=== PATIENT | male | born 1955 | race Caucasian/White ===

== ENCOUNTER 2024-08-22 17:27 | Inpatient (IN) | payer MEDICARE, OTHER ==
[~2024-08-22] VITALS: Ht 177.8 cm; Wt 90.6 kg
[2024-08-22] VITALS (11 sets, daily range): BP systolic 90–124; BP diastolic 57–74; TEMP 97.1; O2SAT 93–99
[2024-08-22] MEDS ORDERED: LISI10TA24 PO (22:02)
[2024-08-22] MEDS ORDERED: AMLO1TAB25 PO (22:02)
[2024-08-22] MEDS ORDERED: CARV12.5 PO (22:02)
[2024-08-22 22:08] LABS: ABG HCO3 26.9 MMOL/L (22.0-26.0); ABG O2 SATURATION 94.8 % (95.0-99.0); ABG PARTIAL PRESSURE O2 83.3 mmHg (75.0-100.0); ABG STANDARD HCO3 22.8 MMOL/L. (22.0-26.0); ABG TOTAL CO2 28.8 MMOL/L (23.0-31.0)
[2024-08-22 22:09] LABS: ABG PARTIAL PRESSURE CO2 62.7 mmHg (35.0-45.0)
[2024-08-22] MEDS: UNRESOLVED CLARIFICATION ENTRY XX STA (22:17)
[2024-08-22 22:18] LABS: HEMATOCRIT 50.6 % (42.0-52.0); HEMOGLOBIN 15.7 g/dl (13.5-17.5); MEAN CORPUSCULAR HEMOGLOBIN 31.7 pg (27.0-33.0); MEAN CORPUSCULAR VOLUME 102.2 fl (80.0-96.0); PLATELET COUNT, AUTOMATED 171 10^3/uL (150-450); RED BLOOD COUNT 4.95 10^6/uL (4.30-6.10); WHITE BLOOD COUNT 9.4 10^3/uL (4.0-10.0)
[2024-08-22] MEDS: NOREPINEPHRINE 4MG IN D5 250ML 4 MG in IV 1 EA IV SCH (22:36)
[2024-08-22] MEDS: NS (Normal Saline) 0.9% 1,000 ML IV ONE (22:36)
[2024-08-22] MEDS: propofoL 1,000 MG in IV 1 EA IV SCH (22:37)
[2024-08-22] MEDS: VASOPRESSIN IN 0.9 % NACL 20 UNIT in IV 1 EA IV SCH (22:42)
[2024-08-22 22:48] LABS: ALBUMIN 2.8 G/DL (3.2-5.2); ALKALINE PHOSPHATASE 82 U/L (40-129); ALT/SGPT 40 U/L (7.0-40); AST/SGOT 26 U/L (<34); BILIRUBIN,TOTAL 0.7 MG/DL (0.3-1.2); BLOOD UREA NITROGEN 35 MG/DL (9-23); CALCIUM LEVEL 6.8 MG/DL (8.3-10.6); CARBON DIOXIDE LEVEL 32 MMOL/L (20-31); CHLORIDE LEVEL 93 MMOL/L (98-107); CREATININE FOR GFR 1.11 MG/DL (0.70-1.30); GLOMERULAR FILTRATION RATE > 60.0 (>49); GLUCOSE, FASTING 286 MG/DL (74-106); MAGNESIUM LEVEL 1.8 MG/DL (1.8-2.4); PHOSPHORUS LEVEL 3.9 MG/DL (2.4-5.1); POTASSIUM SERUM 4.6 MMOL/L (3.5-5.1); SODIUM LEVEL 132 MMOL/L (136-145)
[2024-08-22 22:58] LABS: PROCALCITONIN 0.43 ng/ml
[2024-08-22] MEDS ORDERED: VENTAER INH (23:02)
[2024-08-22] MEDS ORDERED: SIMV20TA22 PO (23:02)
[2024-08-22 23:05] LABS: INR 1.1; PARTIAL THROMBOPLASTIN TIME 25.3 SECONDS (24.8-34.2); PROTHROMBIN TIME 14.5 SECONDS (12.5-14.5)
[2024-08-22] MEDS ORDERED: HOME MED LIST COMPLETE! XX SCH (23:05)
[2024-08-22] MEDS: IPRATROPIUM 0.5MG/ALBUTEROL 2.5MG INH SOL UD 3ML (DUONEB) NEB SCH (23:14)
[2024-08-22] MEDS: cefTRIAXone SOD 1 GM in DEXTROSE 5% (D5W) ADV/MINI-BAG 50 ML IV SCH (23:22)
[2024-08-22] MEDS: methylPREDNISolone 40MG 1ML VIAL IV SCH (23:22)
[2024-08-23] VITALS (59 sets, daily range): BP systolic 81–122; BP diastolic 51–77; TEMP 95.6–99.4; O2SAT 91–99
[2024-08-23] MEDS: DOXYCYCLINE HYCLATE 100 MG in DEXTROSE 5% (D5W) MINI-BAG PLU 100 ML IV SCH (00:19)
[2024-08-23 04:39] LABS: EOS # 0.1 10^3/uL (0.0-0.5); EOS % 0.6 % (0.0-3.0); HEMATOCRIT 47.5 % (42.0-52.0); HEMOGLOBIN 15.2 g/dl (13.5-17.5); LYMPH # 0.4 10^3/uL (1.5-5.0); LYMPH % 4.5 % (24.0-44.0); MEAN CORPUSCULAR HEMOGLOBIN 31.1 pg (27.0-33.0); MEAN CORPUSCULAR VOLUME 97.1 fl (80.0-96.0); MONO # 0.4 10^3/uL (0.0-0.8); MONO % 5.4 % (2.0-8.0); NEUTROPHILS # 7.3 10^3/uL (1.5-8.5); PLATELET COUNT, AUTOMATED 138 10^3/uL (150-450); RED BLOOD COUNT 4.89 10^6/uL (4.30-6.10); WHITE BLOOD COUNT 8.2 10^3/uL (4.0-10.0)
[2024-08-23 05:06] LABS: BLOOD UREA NITROGEN 33 MG/DL (9-23); CALCIUM LEVEL 6.8 MG/DL (8.3-10.6); CARBON DIOXIDE LEVEL 31 MMOL/L (20-31); CHLORIDE LEVEL 95 MMOL/L (98-107); CREATININE FOR GFR 0.93 MG/DL (0.70-1.30); GLOMERULAR FILTRATION RATE > 60.0 (>49); GLUCOSE, FASTING 210 MG/DL (74-106); POTASSIUM SERUM 3.8 MMOL/L (3.5-5.1); SODIUM LEVEL 133 MMOL/L (136-145)
[2024-08-23 05:49] LABS: ABG BASE EXCESS 4.5 (-2.0-2.0); ABG HCO3 28.6 MMOL/L (22.0-26.0); ABG O2 SATURATION 99.4 % (95.0-99.0); ABG PARTIAL PRESSURE CO2 40.8 mmHg (35.0-45.0); ABG PARTIAL PRESSURE O2 216.4 mmHg (75.0-100.0); ABG STANDARD HCO3 28.5 MMOL/L. (22.0-26.0); ABG TOTAL CO2 29.9 MMOL/L (23.0-31.0); ABG pH (ARTERIAL) 7.464 UNITS (7.350-7.450)
[2024-08-23] MEDS: ENOXAPARIN 40MG/0.4ML SYRINGE (J1650 PER 10MG) SC SCH (09:32)
[2024-08-23] MEDS: SODIUM CHLORIDE 0.9% 1000 ML IV ONE (09:32)
[2024-08-23] MEDS: PANTOPRAZOLE 40MG VIAL IV SCH (09:32)
[2024-08-23] MEDS: IPRATROPIUM 0.5MG/ALBUTEROL 2.5MG INH SOL UD 3ML (DUONEB) NEB SCH (10:28)
[2024-08-23 11:13] LABS: ABG BASE EXCESS 3.1 (-2.0-2.0); ABG HCO3 30.3 MMOL/L (22.0-26.0); ABG O2 SATURATION 92.7 % (95.0-99.0); ABG PARTIAL PRESSURE O2 68.6 mmHg (75.0-100.0); ABG STANDARD HCO3 27.1 MMOL/L. (22.0-26.0); ABG pH (ARTERIAL) 7.351 UNITS (7.350-7.450)
[2024-08-23] MEDS: IPRATROPIUM 0.5MG/ALBUTEROL 2.5MG INH SOL UD 3ML (DUONEB) NEB ONE (11:21)
[2024-08-23] MEDS: NS 500 ML IV ONE ×2 (13:40→13:52)
[2024-08-23] MEDS: methylPREDNISolone 40MG 1ML VIAL IV ONE (13:52)
[2024-08-23] MEDS: INSULIN LISPRO (NovoLOG) PER UNIT SC SCH (18:00)
[2024-08-23] MEDS ORDERED: GLUCAGON INJ 1MG VIAL SC PRN (19:05)
[2024-08-23] MEDS ORDERED: DEXTROSE 50% 50ML SYRINGE IV PRN (19:05)
[2024-08-23] MEDS ORDERED: GLUCOSE 4 GM CHEW PO PRN (19:05)
[2024-08-24] VITALS (19 sets, daily range): BP systolic 90–127; BP diastolic 53–77; TEMP 98.8–100.6; O2SAT 91–99
[2024-08-24 04:38] LABS: BASO % 0.1 % (0.0-1.0); EOS % 0.3 % (0.0-3.0); HEMATOCRIT 45.2 % (42.0-52.0); HEMOGLOBIN 14.7 g/dl (13.5-17.5); LYMPH # 0.2 10^3/uL (1.5-5.0); LYMPH % 1.9 % (24.0-44.0); MEAN CORPUSCULAR HEMOGLOBIN 31.4 pg (27.0-33.0); MEAN CORPUSCULAR HGB CONC 32.5 g/dl (32.0-36.5); MEAN CORPUSCULAR VOLUME 96.6 fl (80.0-96.0); MONO # 0.5 10^3/uL (0.0-0.8); NEUTROPHILS # 10.9 10^3/uL (1.5-8.5); NEUTROPHILS % 93.4 % (36.0-66.0); PLATELET COUNT, AUTOMATED 137 10^3/uL (150-450); RED BLOOD COUNT 4.68 10^6/uL (4.30-6.10); WHITE BLOOD COUNT 11.7 10^3/uL (4.0-10.0)
[2024-08-24 05:02] LABS: ALBUMIN 2.5 G/DL (3.2-5.2); ALKALINE PHOSPHATASE 64 U/L (40-129); ALT/SGPT 33 U/L (7.0-40); AST/SGOT 17 U/L (<34); BILIRUBIN,TOTAL 0.3 MG/DL (0.3-1.2); BLOOD UREA NITROGEN 26 MG/DL (9-23); CALCIUM LEVEL 7.3 MG/DL (8.3-10.6); CARBON DIOXIDE LEVEL 32 MMOL/L (20-31); CHLORIDE LEVEL 97 MMOL/L (98-107); CREATININE FOR GFR 0.84 MG/DL (0.70-1.30); GLOMERULAR FILTRATION RATE > 60.0 (>49); GLUCOSE, FASTING 125 MG/DL (74-106); POTASSIUM SERUM 3.9 MMOL/L (3.5-5.1); SODIUM LEVEL 136 MMOL/L (136-145); TOTAL PROTEIN 5.4 G/DL (5.7-8.2)
[2024-08-24] MEDS: NS (Normal Saline) 0.9% 2,000 ML IV ONE (05:49)
[2024-08-24 06:20] LABS: ABG BASE EXCESS 0.5 (-2.0-2.0); ABG HCO3 25.4 MMOL/L (22.0-26.0); ABG O2 SATURATION 93.5 % (95.0-99.0); ABG PARTIAL PRESSURE CO2 42.1 mmHg (35.0-45.0); ABG PARTIAL PRESSURE O2 71.7 mmHg (75.0-100.0); ABG STANDARD HCO3 24.8 MMOL/L. (22.0-26.0); ABG TOTAL CO2 26.7 MMOL/L (23.0-31.0); ABG pH (ARTERIAL) 7.399 UNITS (7.350-7.450)
[2024-08-24] MEDS: TIOTROPIUM INHALER/CAPSULE (SPIRIVA) INH SCH (08:00)
[2024-08-24] MEDS ORDERED: IPRATROPIUM 0.5MG/ALBUTEROL 2.5MG INH SOL UD 3ML (DUONEB) NEB PRN (09:15)
[2024-08-24] MEDS: LR 1,000 ML IV SCH (10:12)
[2024-08-24] MEDS: CARVedilol 12.5 MG TAB PO ONE (10:52)
[2024-08-24 12:14] LABS: ABG HCO3 28.5 MMOL/L (22.0-26.0); ABG O2 SATURATION 96.3 % (95.0-99.0); ABG PARTIAL PRESSURE CO2 51.3 mmHg (35.0-45.0); ABG PARTIAL PRESSURE O2 90.4 mmHg (75.0-100.0); ABG STANDARD HCO3 26.2 MMOL/L. (22.0-26.0); ABG pH (ARTERIAL) 7.362 UNITS (7.350-7.450)
[2024-08-24] MEDS ORDERED: MIDODRINE 5 MG TAB PO SCH (16:00)
[2024-08-24] MEDS: FORMOTEROL FUMARATE 20 MCG/2 ML INHALATION SOLUTION (PERFOROMIST) INH SCH (19:30)
[2024-08-24] MEDS: guaiFENesin ER TABLET 600 MG TAB PO SCH (20:36)
[2024-08-25] VITALS (8 sets, daily range): BP systolic 127–154; BP diastolic 71–85; TEMP 97.5–98.7; O2SAT 78–92
[2024-08-25 06:06] LABS: BASO % 0.1 % (0.0-1.0); EOS # 0.1 10^3/uL (0.0-0.5); EOS % 0.5 % (0.0-3.0); HEMATOCRIT 45.5 % (42.0-52.0); HEMOGLOBIN 14.7 g/dl (13.5-17.5); LYMPH # 0.3 10^3/uL (1.5-5.0); LYMPH % 2.6 % (24.0-44.0); MEAN CORPUSCULAR HEMOGLOBIN 31.7 pg (27.0-33.0); MEAN CORPUSCULAR HGB CONC 32.3 g/dl (32.0-36.5); MEAN CORPUSCULAR VOLUME 98.1 fl (80.0-96.0); MONO # 0.3 10^3/uL (0.0-0.8); MONO % 3.2 % (2.0-8.0); NEUTROPHILS # 9.8 10^3/uL (1.5-8.5); NEUTROPHILS % 93.2 % (36.0-66.0); PLATELET COUNT, AUTOMATED 142 10^3/uL (150-450); RED BLOOD COUNT 4.64 10^6/uL (4.30-6.10); WHITE BLOOD COUNT 10.5 10^3/uL (4.0-10.0)
[2024-08-25 06:30] LABS: BLOOD UREA NITROGEN 20 MG/DL (9-23); CALCIUM LEVEL 7.7 MG/DL (8.3-10.6); CARBON DIOXIDE LEVEL 37 MMOL/L (20-31); CHLORIDE LEVEL 106 MMOL/L (98-107); CREATININE FOR GFR 0.63 MG/DL (0.70-1.30); GLOMERULAR FILTRATION RATE > 60.0 (>49); GLUCOSE, FASTING 107 MG/DL (74-106); POTASSIUM SERUM 4.9 MMOL/L (3.5-5.1); SODIUM LEVEL 143 MMOL/L (136-145)
[2024-08-25] MEDS: methylPREDNISolone 40MG 1ML VIAL IV SCH (08:53)
[2024-08-25] MEDS: CEFDINIR 300 MG CAP (OMNICEF) PO SCH (08:53)
[2024-08-25] MEDS: DOXYCYCLINE HYCLATE 100MG TABLET PO SCH (08:53)
[2024-08-26 03:09] VITALS: BP 144/85; TEMP 97.5; O2SAT 89
[2024-08-26 13:01] VITALS: BP 145/89; TEMP 97.7; O2SAT 92
[2024-08-26] MEDS: methylPREDNISolone 40MG 1ML VIAL IV SCH (16:18)
[2024-08-26 20:24] VITALS: BP 133/78; TEMP 97.9; O2SAT 93
[2024-08-27] VITALS (7 sets, daily range): BP systolic 140–153; BP diastolic 88–97; TEMP 97.5–98.1; O2SAT 88–93
[2024-08-27] MEDS: predniSONE 20 MG TAB PO SCH (09:59)
[2024-08-27] MEDS: metOLazone 5 MG TAB PO ONE (12:46)
[2024-08-27] MEDS: FUROSEMIDE 40MG/4ML VIAL IV ONE ×2 (13:33→18:32)
[2024-08-27] MEDS ORDERED: CEFD300CAP PO (15:28)
[2024-08-27] MEDS ORDERED: ALBU8.5H INH (15:28)
[2024-08-27] MEDS ORDERED: DOXY100T PO (15:28)
[2024-08-27] MEDS ORDERED: BUDE90AE INH (15:28)
[2024-08-27] MEDS ORDERED: PRED20TA PO (15:28)
[2024-08-27] MEDS ORDERED: PRED10TA2 PO (15:28)
[2024-08-27] MEDS ORDERED: TIOT18INH INH (15:28)
[2024-08-27] MEDS ORDERED: COMBAER6 INH (15:28)
[2024-08-27] MEDS ORDERED: [UNRECOGNIZED DRUG - CODE] NEB (15:33)
[2024-08-27] MEDS ORDERED: TALK1KIT MC (15:33)
[2024-08-27] MEDS ORDERED: IPRA0.00 INH (15:33)
[2024-08-27] MEDS: hydroCHLOROthiazide 12.5 MG CAPSULE PO SCH (15:46)
[2024-08-28 04:00] VITALS: BP 119/85; TEMP 97.1; O2SAT 90
[2024-08-28 12:00] VITALS: BP 146/90; TEMP 97.7; O2SAT 87
[2024-08-28] MEDS ORDERED: AZIT-12 PO (14:25)
[2024-08-28 19:51] VITALS: BP 142/98; TEMP 97.5; O2SAT 97
[2024-08-28] MEDS: metOLazone 5 MG TAB PO ONE (20:32)
[2024-08-28 21:30] VITALS: BP 133/86
[2024-08-28] MEDS: FUROSEMIDE 40MG/4ML VIAL IV ONE (21:33)
[2024-08-29 04:27] VITALS: BP 133/80; TEMP 97.7; O2SAT 91
[2024-08-29] MEDS ORDERED: BREO1INH PO (09:06)
[2024-08-29] MEDS: ADVAIR HFA 230/21MCG INHALER INH SCH (09:26)
[2024-08-29 09:43] LABS: BASO % 0.1 % (0.0-1.0); EOS % 0.2 % (0.0-3.0); LYMPH # 0.7 10^3/uL (1.5-5.0); LYMPH % 7.4 % (24.0-44.0); MEAN CORPUSCULAR HEMOGLOBIN 30.8 pg (27.0-33.0); MEAN CORPUSCULAR HGB CONC 32.7 g/dl (32.0-36.5); MEAN CORPUSCULAR VOLUME 93.9 fl (80.0-96.0); MONO % 10.2 % (2.0-8.0); NEUTROPHILS # 8.2 10^3/uL (1.5-8.5); NEUTROPHILS % 81.8 % (36.0-66.0); PLATELET COUNT, AUTOMATED 153 10^3/uL (150-450); RED BLOOD COUNT 5.95 10^6/uL (4.30-6.10); WHITE BLOOD COUNT 10.1 10^3/uL (4.0-10.0)
[2024-08-29 09:48] LABS: HEMATOCRIT 55.9 % (42.0-52.0); HEMOGLOBIN 18.3 g/dl (13.5-17.5)
[2024-08-29] MEDS: predniSONE 20 MG TAB PO SCH (09:57)
[2024-08-29 09:58] VITALS: BP 142/85
[2024-08-29 10:18] LABS: BLOOD UREA NITROGEN 21 MG/DL (9-23); CALCIUM LEVEL 8.6 MG/DL (8.3-10.6); CARBON DIOXIDE LEVEL > 40.0 MMOL/L (20-31); CHLORIDE LEVEL 90 MMOL/L (98-107); CREATININE FOR GFR 0.65 MG/DL (0.70-1.30); GLOMERULAR FILTRATION RATE > 60.0 (>49); GLUCOSE, FASTING 120 MG/DL (74-106); POTASSIUM SERUM 3.3 MMOL/L (3.5-5.1); SODIUM LEVEL 140 MMOL/L (136-145)
[2024-08-29 12:00] VITALS: BP 143/87; TEMP 98.1; O2SAT 89
[2024-08-29] MEDS ORDERED: ALBU8.5H INH (12:13)
[2024-08-29] MEDS ORDERED: IPRA0.00 INH (12:13)
[2024-08-29] MEDS ORDERED: BUDE0.5S6 INH (12:13)
== END 2024-08-29 14:00 | disposition home or self-care (01) | DRG 208 ==
LOC: M ICU 20:45 → M MS5PR 08-25 12:57
PROVIDERS: ADMIT Internal Medicine Critical Care Medicine; ATTEND Internal Medicine Nephrology
PROC: 5A1945Z Respiratory Ventilation, 24-96 Consecutive Hours (ICD-10-PCS; principal; 2024-08-22)
PROC: 02HV33Z Insertion of Infusion Device into Superior Vena Cava, Percutaneous Approach (ICD-10-PCS; 2024-08-22)
PROC: B246ZZZ Ultrasonography of Right and Left Heart (ICD-10-PCS; 2024-08-23)
DX: J96.01 Acute respiratory failure with hypoxia (principal); G93.41 Metabolic encephalopathy; J18.9 Pneumonia, unspecified organism; J44.1 Chronic obstructive pulmonary disease with (acute) exacerbation; J44.0 Chronic obstructive pulmonary disease with (acute) lower respiratory infection; E87.29 Other acidosis; I10 Essential (primary) hypertension; E78.5 Hyperlipidemia, unspecified; F17.210 Nicotine dependence, cigarettes, uncomplicated; J96.02 Acute respiratory failure with hypercapnia; I95.9 Hypotension, unspecified; Z79.899 Other long term (current) drug therapy; Z91.030 Bee allergy status

== ENCOUNTER → 2024-11-21 | Outpatient (CLI) | payer MEDICARE ==
[~2024-11-21] MED LIST: ALBU8.5H INH; AMLO1TAB25 PO; AZIT-12 PO; BREO1INH PO; BUDE0.5S6 INH; BUDE90AE INH; CARV12.5 PO; CEFD300CAP PO; COMBAER6 INH; DOXY100T PO; IPRA0.00 INH; LISI10TA24 PO; PRED10TA2 PO; PRED20TA PO; SIMV20TA22 PO; TALK1KIT MC; TIOT18INH INH; VENTAER INH; [UNRECOGNIZED DRUG - CODE] NEB
== END ==
LOC: M SLEEP HO 11:26
PROVIDERS: ATTEND Internal Medicine Critical Care Medicine
DX: R06.83 Snoring (principal)

== ENCOUNTER → 2025-04-23 | Outpatient (CLI) | payer MEDICARE ==
[2025-04-23 14:27] LABS: BASO # 0.1 10^3/uL (0.0-0.2); BASO % 0.7 % (0.0-1.0); EOS # 0.3 10^3/uL (0.0-0.5); EOS % 3.6 % (0.0-3.0); LYMPH # 1.6 10^3/uL (1.5-5.0); LYMPH % 21.7 % (24.0-44.0); MONO # 0.7 10^3/uL (0.0-0.8); MONO % 10.1 % (2.0-8.0); NEUTROPHILS # 4.6 10^3/uL (1.5-8.5); NEUTROPHILS % 63.6 % (36.0-66.0); PLATELET COUNT, AUTOMATED 317 10^3/uL (150-450)
== END ==
LOC: M LAB 13:40
PROVIDERS: ATTEND Internal Medicine Critical Care Medicine
DX: J44.9 Chronic obstructive pulmonary disease, unspecified (principal)